=== PATIENT | female | born 1940 | race Caucasian/White ===

== ENCOUNTER 2020-10-11 15:07 | Inpatient (IN) | payer MEDICARE, MEDICAID ==
[~2020-10-11] VITALS: Ht 165.1 cm; Wt 88.6 kg
[~2020-10-11 15:07] MED LIST: AMIO200T61 PO; ATOR10TA87 PO; COL100C PO; GLIM4TAB7 PO; LOP25T PO; NORCO10T PO; SITA100T15 PO; WARF10TA50 CORPAK
[2020-10-11 16:02] LABS: BASOPHILS % (AUTO) 0.7 % (0-1); EOSINOPHILS # (AUTO) 0.2 X10'3 (0-0.9); EOSINOPHILS % (AUTO) 3.1 % (0-6); HEMATOCRIT 36.5 % (35.0-45.0); HEMOGLOBIN 12.3 g/dl (12.0-16.0); LYMPHOCYTES # (AUTO) 1.4 X10'3 (1.1-4.8); LYMPHOCYTES % (AUTO) 18.4 % (21-51); MEAN CORPUSCULAR HEMOGLOBIN 30.3 PG (27.0-31.0); MEAN CORPUSCULAR HGB CONC 33.8 g/dL (33.0-36.5); MEAN CORPUSCULAR VOLUME 89.7 FL (78-98); MEAN PLATELET VOLUME 8.5 FL (7.4-10.4); MONOCYTES # (AUTO) 0.6 X10'3 (0-0.9); MONOCYTES % (AUTO) 7.4 % (2-12); NEUTROPHILS # (AUTO) 5.3 X10'3 (1.8-7.7); NEUTROPHILS % (AUTO) 70.4 % (42-75); PLATELET COUNT 304 X10'3 (140-440); RED BLOOD COUNT 4.07 X10'6 (4.20-5.60); RED CELL DISTRIBUTION WIDTH 14.1 % (11.5-14.5); WHITE BLOOD COUNT 7.5 X10'3 (4.5-11.0)
[2020-10-11 16:18] LABS: ALANINE AMINOTRANSFERASE 50 U/L (12-78); ALBUMIN 3.7 G/DL (3.4-5.0); ALBUMIN/GLOBULIN RATIO 1.1 (1.1-1.5); ALKALINE PHOSPHATASE 215 IU/L (46-116); ANION GAP 14 (8-16); ASPARTATE AMINO TRANSFERASE 30 U/L (10-37); BILIRUBIN,TOTAL 0.3 MG/DL (0.1-1.0); BLOOD UREA NITROGEN 11 MG/DL (7-18); BUN/CREATININE RATIO 14.3 (6.6-38.0); CALCIUM 9.2 MG/DL (8.5-10.1); CHLORIDE 105 MMOL/L (99-107); CREATININE 0.77 MG/DL (0.40-0.90); GLUCOSE 249 MG/DL (70-104); POTASSIUM 3.8 MMOL/L (3.5-5.1); SODIUM 144 MMOL/L (135-145); TOTAL CARBON DIOXIDE 24.9 MMOL/L (24-32); TOTAL PROTEIN 7.2 G/DL (6.4-8.2); eGFR 72 ML/MIN
--- NOTE | 2020-10-11 16:26 | NUR ---
ASSISTED PT TO [facility]; NOTABLE INCREASE IN SOB AND HR. SETTLED DOWN UPON RETURN TO [facility]. BELEN NICHOLSON APPRAISED.
--- NOTE | 2020-10-11 16:45 | NUR ---
Pt gave verbal consent to update [id number], Ada Zapien ([phone]) which was done.
--- NOTE | 2020-10-11 16:49 | NUR ---
Pt's daughter Marquita's cell number [phone]. Try Marquita's home number first; poor cell coverage.
[2020-10-11] MEDS ORDERED: nitroGLYCERIN 0.2mg/hour patch TD ONE (16:50)
[2020-10-11] MEDS ORDERED: aspirin 81mg tab.chew PO ONE (16:50)
[2020-10-11] MEDS ORDERED: LISI10TA27 PO (16:57)
[2020-10-11] MEDS ORDERED: LANTUS SQ (16:57)
[2020-10-11] MEDS ORDERED: LINA5TAB4 PO (16:57)
[2020-10-11] MEDS ORDERED: ASPI-611 PO (17:05)
[2020-10-11] MEDS ORDERED: dextrose 50%-water 50ml dispensing syringe IV PRN ×2 (17:50)
[2020-10-11] MEDS ORDERED: acetaminophen 325mg tablet PO PRN ×2 (17:50)
[2020-10-11] MEDS ORDERED: morphine 2 MG/ML inj. syringe IV PRN ×2 (17:50)
[2020-10-11] MEDS ORDERED: dextrose ORAL solution 15 GM/59 ML bottle PO PRN ×2 (17:50)
[2020-10-11] MEDS ORDERED: MESSAGE TO PHARMACY PO ONE (17:50)
[2020-10-11] MEDS ORDERED: nitroGLYCERIN 0.4mg SUBLingual tab SL PRN (17:50)
[2020-10-11] MEDS ORDERED: glucagon, human recombinant 1mg kit SUBCUT PRN (17:50)
[2020-10-11] MEDS ORDERED: magnesium hydroxide 30ml (MOM) UD suspension PO PRN (17:50)
[2020-10-11] MEDS ORDERED: mag hydrox/Alum hydrox/simeth 30ml oral suspension PO PRN (17:50)
[2020-10-11] MEDS ORDERED: ondansetron/PF 4mg/2ml inj IV PRN (17:50)
[2020-10-11] MEDS ORDERED: heparin 10,000 units/1 ML INJ IV ONE (17:50)
[2020-10-11] MEDS ORDERED: diltiazem 5mg/ml 5ml inj. IV ONE (18:00)
[2020-10-11] MEDS: heparin 25,000 UNIT/250ml bag 250 ML IV SCH (18:25)
[2020-10-11 18:35] LABS: PARTIAL THROMBOPLASTIN TIME 25 SECONDS (22-32)
[2020-10-11 18:47] LABS: BASOPHILS # (AUTO) 0.1 X10'3 (0-0.2); BASOPHILS % (AUTO) 0.8 % (0-1); EOSINOPHILS # (AUTO) 0.2 X10'3 (0-0.9); EOSINOPHILS % (AUTO) 2.8 % (0-6); HEMATOCRIT 36.1 % (35.0-45.0); LYMPHOCYTES # (AUTO) 1.4 X10'3 (1.1-4.8); LYMPHOCYTES % (AUTO) 17.7 % (21-51); MEAN CORPUSCULAR HEMOGLOBIN 30.1 PG (27.0-31.0); MEAN CORPUSCULAR HGB CONC 33.2 g/dL (33.0-36.5); MEAN CORPUSCULAR VOLUME 90.5 FL (78-98); MEAN PLATELET VOLUME 8.2 FL (7.4-10.4); MONOCYTES # (AUTO) 0.6 X10'3 (0-0.9); MONOCYTES % (AUTO) 7.4 % (2-12); NEUTROPHILS # (AUTO) 5.7 X10'3 (1.8-7.7); NEUTROPHILS % (AUTO) 71.3 % (42-75); PLATELET COUNT 309 X10'3 (140-440); RED BLOOD COUNT 3.98 X10'6 (4.20-5.60); RED CELL DISTRIBUTION WIDTH 14.1 % (11.5-14.5)
[2020-10-11 19:03] LABS: HEMOGLOBIN A1C 9.3 % (4.5-6.2)
[2020-10-11 20:29] VITALS: BP 124/95
[2020-10-11] MEDS: insulin glargine (Lantus) pen - multi-dose SQ SCH (21:00)
[2020-10-11] MEDS: atorvastatin 10mg tablet PO SCH (21:10)
[2020-10-11 22:00] VITALS: BP 159/78
[2020-10-11] MEDS: Melatonin 3mg tablet PO PRN (22:51)
--- NOTE | 2020-10-11 23:33 | NUR ---
PATIENT STATES HAS NOT SLEPT IN 48 HOURS AND WISHES TO WAIT FOR THE MORNING TO DO FULL ADMISSION QUESTIONNAIRE
[2020-10-12] VITALS (7 sets, daily range): BP systolic 98–138; BP diastolic 36–100
[2020-10-12 00:47] LABS: HEMOGLOBIN 11.1 g/dl (12.0-16.0); MEAN PLATELET VOLUME 8.5 FL (7.4-10.4)
[2020-10-12 00:49] LABS: BASOPHILS # (AUTO) 0.1 X10'3 (0-0.2); BASOPHILS % (AUTO) 0.8 % (0-1); EOSINOPHILS # (AUTO) 0.2 X10'3 (0-0.9); EOSINOPHILS % (AUTO) 2.7 % (0-6); HEMATOCRIT 32.5 % (35.0-45.0); LYMPHOCYTES # (AUTO) 1.8 X10'3 (1.1-4.8); LYMPHOCYTES % (AUTO) 19.5 % (21-51); MEAN CORPUSCULAR HEMOGLOBIN 30.8 PG (27.0-31.0); MEAN CORPUSCULAR HGB CONC 34.1 g/dL (33.0-36.5); MEAN CORPUSCULAR VOLUME 90.2 FL (78-98); MONOCYTES # (AUTO) 0.7 X10'3 (0-0.9); MONOCYTES % (AUTO) 7.7 % (2-12); NEUTROPHILS # (AUTO) 6.2 X10'3 (1.8-7.7); NEUTROPHILS % (AUTO) 69.3 % (42-75); PLATELET COUNT 280 X10'3 (140-440); RED CELL DISTRIBUTION WIDTH 14.3 % (11.5-14.5)
[2020-10-12 00:56] LABS: ALBUMIN 3.2 G/DL (3.4-5.0); ANION GAP 7 (8-16); BLOOD UREA NITROGEN 13 MG/DL (7-18); BUN/CREATININE RATIO 16.3 (6.6-38.0); CALCIUM 9.1 MG/DL (8.5-10.1); CHLORIDE 108 MMOL/L (99-107); CHOL/HDL RATIO 2.3 (0.00-4.99); CHOLESTEROL 102 MG/DL (0-200); GLUCOSE 223 MG/DL (70-104); HDL CHOLESTEROL 45 MG/DL (35-60); LDL CHOLESTEROL 45 MG/DL (50-100); POTASSIUM 3.4 MMOL/L (3.5-5.1); SODIUM 142 MMOL/L (135-145); TOTAL CARBON DIOXIDE 26.8 MMOL/L (24-32); TRIGLYCERIDES 95 MG/DL (20-135); eGFR 69 ML/MIN
--- NOTE | 2020-10-12 06:39 | NUR ---
Patient in room PCU 3017. I have received report from Tj ZACARIAS and had the opportunity to ask questions and assume patient care.
[2020-10-12] MEDS ORDERED: lisinopril 10 MG tablet PO SCH (08:00)
[2020-10-12] MEDS ORDERED: aspirin 81mg tablet.DR PO SCH (08:00)
[2020-10-12] MEDS: aspirin 81mg tab.chew PO SCH (08:27)
[2020-10-12 12:23] LABS: PARTIAL THROMBOPLASTIN TIME 54 SECONDS (22-32)
[2020-10-12 12:34] LABS: PHOSPHORUS 3.1 MG/DL (2.3-4.5)
[2020-10-12] MEDS: heparin 25,000 UNIT/250ml bag 250 ML IV SCH ×2 (12:38→17:11)
--- NOTE | 2020-10-12 13:10 | NUR ---
Patient resting comfortably in bed, MD would like patient to ambukate some today. Heparin gtt still in place at same rate, 1000 units. Last PTT therapeutic so change in rate for 12pm. Next PTT at 1800, will order per protocol. Bed locked in lowest position, call light within reach, int in place flushing well, patient instructed to call for assistance, verbalized understanding.
[2020-10-12] MEDS: insulin Lispro (HumaLOG) vial - multi-dose SQ SCH ×2 (13:17→18:47)
--- NOTE | 2020-10-12 14:54 | NUR ---
Pt with A1c 9.3% seen at bedside for written and verbal DM education. Pt states she sees an PSYCHOLOGIST COUNSELING q three months and takes her medications per rx. Pt reports limiting intake of dessert items to assist with DM management. Pt denies questions at this time. RD contact information provided. Pt endorses a good appetite however reports disliking the food though with no food preferences at this time. RD assisted pt in menu selection for the following three meals. Noted that milk is listed as a food allergy in EMR, per pt she gets a stuffy notes with intake of dairy and does not avoid it at home, likely not a true allergy. Pt denies difficulty chewing/swallowing or constipation/diarrhea. Will continue to follow. Addendum: 10/12/20 at [address] Amended: Links added.
--- NOTE | 2020-10-12 15:33 | NUR ---
Family at bedside with patient. Heparin GTT still in place. Patient up to bedside commode. No complaints of chest pain, still complains of generalized weakness.
[2020-10-12] MEDS: cetirizine 10mg tablet PO SCH (17:08)
--- NOTE | 2020-10-12 18:18 | NUR ---
Problems reprioritized. Patient report given, questions answered & plan of care reviewed with Tj ZACARIAS.
[2020-10-12 18:28] LABS: PARTIAL THROMBOPLASTIN TIME 44 SECONDS (22-32)
[2020-10-12] MEDS: atorvastatin 10mg tablet PO SCH (18:48)
[2020-10-12] MEDS: furosemide 40mg/4ml inj IV SCH (19:07)
[2020-10-12] MEDS: metoprolol tartrate 12.5mg (1/2 tablet) PO SCH (19:07)
[2020-10-12] MEDS: Melatonin 3mg tablet PO PRN (19:07)
[2020-10-12] MEDS: heparin 10,000 units/1 ML INJ IV PRN (19:13)
[2020-10-12] MEDS: insulin glargine (Lantus) pen - multi-dose SQ SCH (21:34)
--- NOTE | 2020-10-12 22:55 | NUR ---
BLOOD PRESSURE WAS INCORRECTLY PUT IN ON WRONG PATIENT FOR 2200 10/12
[2020-10-13 00:26] LABS: ALBUMIN 3.5 G/DL (3.4-5.0); ANION GAP 8 (8-16); BLOOD UREA NITROGEN 12 MG/DL (7-18); BUN/CREATININE RATIO 15.6 (6.6-38.0); CALCIUM 8.9 MG/DL (8.5-10.1); CHLORIDE 107 MMOL/L (99-107); CREATININE 0.77 MG/DL (0.40-0.90); GLUCOSE 132 MG/DL (70-104); POTASSIUM 3.5 MMOL/L (3.5-5.1); SODIUM 142 MMOL/L (135-145); TOTAL CARBON DIOXIDE 26.8 MMOL/L (24-32); eGFR 72 ML/MIN
[2020-10-13 00:43] LABS: BASOPHILS # (AUTO) 0.1 X10'3 (0-0.2); BASOPHILS % (AUTO) 0.8 % (0-1); EOSINOPHILS # (AUTO) 0.3 X10'3 (0-0.9); EOSINOPHILS % (AUTO) 3.3 % (0-6); HEMATOCRIT 35.3 % (35.0-45.0); LYMPHOCYTES # (AUTO) 1.7 X10'3 (1.1-4.8); LYMPHOCYTES % (AUTO) 19.3 % (21-51); MEAN CORPUSCULAR HEMOGLOBIN 30.5 PG (27.0-31.0); MEAN CORPUSCULAR HGB CONC 34.1 g/dL (33.0-36.5); MEAN CORPUSCULAR VOLUME 89.6 FL (78-98); MEAN PLATELET VOLUME 8.6 FL (7.4-10.4); MONOCYTES # (AUTO) 0.7 X10'3 (0-0.9); MONOCYTES % (AUTO) 7.6 % (2-12); NEUTROPHILS # (AUTO) 6.1 X10'3 (1.8-7.7); PLATELET COUNT 321 X10'3 (140-440); RED BLOOD COUNT 3.94 X10'6 (4.20-5.60); RED CELL DISTRIBUTION WIDTH 14.2 % (11.5-14.5); WHITE BLOOD COUNT 8.8 X10'3 (4.5-11.0)
--- NOTE | 2020-10-13 01:09 | NUR ---
NOTIFIED MD IN REGARDS TO PTT RESULTS. ORDERS ARE TO FOLLOW PROTOCOL . HEPARIN HELD FOR 120 MINS AND DECREASED BY 300 UNITS/ HR THEN REPEAT PTT AT 0500
[2020-10-13 02:00] VITALS: BP 125/50
[2020-10-13 06:00] VITALS: BP 148/67
--- NOTE | 2020-10-13 06:25 | NUR ---
Patient in room PCU 3017. I have received report from Tj ZACARIAS and had the opportunity to ask questions and assume patient care.
[2020-10-13] MEDS: heparin 10,000 units/1 ML INJ IV PRN (06:51)
--- NOTE | 2020-10-13 06:59 | NUR ---
Entered room, patient agitated and states she is ready to go home, Heparin gtt in place, rate changed this morning based on protocol, patient tolerating well. Patient is NPO for possible stress test this morning. Bed locked in lowest position, call light within reach, patient instructed to call for assistance, verbalized understanding.
[2020-10-13] MEDS: furosemide 40mg/4ml inj IV SCH (08:57)
[2020-10-13] MEDS: aspirin 81mg tab.chew PO SCH (08:57)
[2020-10-13] MEDS: cetirizine 10mg tablet PO SCH (08:57)
[2020-10-13] MEDS: insulin Lispro (HumaLOG) vial - multi-dose SQ SCH ×2 (09:00→14:21)
--- NOTE | 2020-10-13 09:58 | NUR ---
Patient resting comfortably in bed, heparin gtt in place, up to bedside commode frequently(taking lasix). No complaints of generalized pain or chest pain at this time. Bed locked in lowest position, call light within reach, fall precautions in place, pt verbalized to call for assistance when needed.
[2020-10-13 11:00] VITALS: BP 117/62
[2020-10-13] MEDS ORDERED: METO25TA6 PO ×2 (11:22→12:18)
[2020-10-13] MEDS ORDERED: APIX5TAB3 PO (11:22)
[2020-10-13] MEDS ORDERED: FURO-150 PO (11:23)
[2020-10-13 12:08] VITALS: BP_SYST 117
[2020-10-13] MEDS: metoprolol tartrate 12.5mg (1/2 tablet) PO SCH (12:08)
--- NOTE | 2020-10-13 15:33 | NUR ---
Discharge instructions provided to patient, med reviewed, patient instructed prescriptions sent to [facility], int removed, patient verbalized understanding. Transported downstairs in wheelchair, instructions provided to son as well.
--- NOTE | 2020-10-14 11:06 | NUR ---
CASE MANAGEMENT DISCHARGE FOLLOW UP: Spoke with pt via telephone. Reports that she is doing okay; denies SOB/dyspnea, CP, fever, dizziness, lethargy, weakness. Verbalizes understanding of s/sx requiring further evaluation/emergent assistance. Verbalizes understanding of new and current medications. Verbalizes compliance with MD discharge instructions. Verbalizes understanding of the importance in making/keeping follow-up appointments, states trying to set up f/u appointments, denies need for assistance, states that her son will be coming to visit and will help. Pt states unsure which home health agency she was open with prior to admit, states will look through papers and call back to this nurse when she finds out. States no further questions/concerns at this time.
== END 2020-10-13 15:47 | disposition home health service (06) | DRG 280 ==
LOC: ER 15:08 → ED HOLD 17:49 → PCU 3S 19:54
PROVIDERS: ADMIT Internal Medicine; ATTEND Internal Medicine
DX: I48.0 Paroxysmal atrial fibrillation (principal); I50.21 Acute systolic (congestive) heart failure; I21.A1 Myocardial infarction type 2; E78.00 Pure hypercholesterolemia, unspecified; E11.9 Type 2 diabetes mellitus without complications; E78.5 Hyperlipidemia, unspecified; I11.0 Hypertensive heart disease with heart failure; I25.10 Atherosclerotic heart disease of native coronary artery without angina pectoris; E87.6 Hypokalemia; Z60.2 Problems related to living alone; Z83.3 Family history of diabetes mellitus; Z85.3 Personal history of malignant neoplasm of breast; I25.2 Old myocardial infarction; Z90.710 Acquired absence of both cervix and uterus; Z95.1 Presence of aortocoronary bypass graft; Z88.0 Allergy status to penicillin; Z88.2 Allergy status to sulfonamides; Z98.51 Tubal ligation status; Z79.899 Other long term (current) drug therapy
CPT/HCPCS: 36415; 71045; 76937; 80048; 80053; 80061; 82948; 83036; 83735; 83880; 84100; 84443; 84484; 85025; 85610; 85730; 87081; 93005; 93306; 93308; 93971; 96374; 99285; G0378; J1644; J1815; J1940; J3490

== ENCOUNTER 2021-10-23 17:36 | Inpatient (IN) | payer MEDICARE, MEDICAID ==
[~2021-10-23] VITALS: Ht 172.7 cm; Wt 90.9 kg
[~2021-10-23 17:36] MED LIST changes: -AMIO200T61 PO; +APIX5TAB3 PO; +ASPI-611 PO; -COL100C PO; -GLIM4TAB7 PO; +KEP500T PO; +LANTUS SQ; +LINA5TAB4 PO; +LISI10TA27 PO; -NORCO10T PO; -SITA100T15 PO; -WARF10TA50 CORPAK; +etomidate 2mg/ml inj. ONE; +sodium bicarbonate (8.4%) 1 mEq/ml syringe ONE
--- NOTE | 2021-10-23 17:37 | NUR ---
BELEN Ponce at bedside.
[2021-10-23] MEDS ORDERED: normal saline 1000ML IV soln IVB ONE (18:05)
[2021-10-23 18:36] LABS: BASOPHILS # (AUTO) 0.1 X10'3 (0-0.2); BASOPHILS % (AUTO) 0.8 % (0-1); EOSINOPHILS # (AUTO) 0.1 X10'3 (0-0.9); HEMATOCRIT 33.4 % (35.0-45.0); HEMOGLOBIN 10.6 g/dl (12.0-16.0); LYMPHOCYTES # (AUTO) 0.7 X10'3 (1.1-4.8); LYMPHOCYTES % (AUTO) 7.5 % (21-51); MEAN CORPUSCULAR HEMOGLOBIN 26.9 PG (27.0-31.0); MEAN CORPUSCULAR HGB CONC 31.6 g/dL (33.0-36.5); MEAN CORPUSCULAR VOLUME 85.1 FL (78-98); MEAN PLATELET VOLUME 9.4 FL (7.4-10.4); MONOCYTES # (AUTO) 0.6 X10'3 (0-0.9); MONOCYTES % (AUTO) 6.3 % (2-12); NEUTROPHILS # (AUTO) 8.4 X10'3 (1.8-7.7); NEUTROPHILS % (AUTO) 84.4 % (42-75); PLATELET COUNT 370 X10'3 (140-440); RED BLOOD COUNT 3.93 X10'6 (4.20-5.60); RED CELL DISTRIBUTION WIDTH 18.1 % (11.5-14.5)
[2021-10-23 18:45] LABS: ALANINE AMINOTRANSFERASE 44 U/L (12-78); ALBUMIN 3.3 G/DL (3.4-5.0); ALBUMIN/GLOBULIN RATIO 0.8 (1.1-1.5); ALKALINE PHOSPHATASE 225 IU/L (46-116); ANION GAP 15 (8-16); ASPARTATE AMINO TRANSFERASE 42 U/L (10-37); BILIRUBIN,TOTAL 0.6 MG/DL (0.1-1.0); BLOOD UREA NITROGEN 28 MG/DL (7-18); BUN/CREATININE RATIO 20.9 (6.6-38.0); CALCIUM 9.4 MG/DL (8.5-10.1); CHLORIDE 98 MMOL/L (99-107); CREATININE 1.34 MG/DL (0.40-0.90); MAGNESIUM 2.1 MG/DL (1.5-2.4); SODIUM 131 MMOL/L (135-145); TOTAL CARBON DIOXIDE 17.9 MMOL/L (24-32); TOTAL PROTEIN 7.4 G/DL (6.4-8.2); eGFR 38 ML/MIN
[2021-10-23 18:52] LABS: GLUCOSE 644 MG/DL (70-104); POTASSIUM 6.2 MMOL/L (3.5-5.1)
[2021-10-23 19:00] LABS: ABG BASE EXCESS -8.5 mmol/L (-2.0-2.0); ABG HCO3 14.8 mmol/L (22.0-26.0); ABG OXYGEN SATURATION 89.9 % (94-97); ABG PCO2 (T) 23.5 mmHg (32.0-45.0); ABG PO2 (T) 56.3 mmHg (75.0-100.0); FCOHb 0.4 % (0.0-3.9); FMetHb 0.2 % (0.0-1.5); FO2Hb 89.4 % (94-97); PATIENT TEMPERATURE 35.9; TOTAL HEMOGLOBIN 11.4 G/dl (12.0-16.0)
[2021-10-23] MEDS ORDERED: dextrose 50%-water 50ml dispensing syringe IV ONE (19:10)
[2021-10-23] MEDS ORDERED: sodium polystyrene sulfonate 15gm/60ml oral suspension PO ONE (19:10)
[2021-10-23] MEDS ORDERED: aspirin 81mg tab.chew PO ONE (19:10)
[2021-10-23] MEDS ORDERED: sodium bicarbonate (8.4%) 1 mEq/ml syringe IV ONE (19:10)
[2021-10-23] MEDS ORDERED: insulin regular, human U-100 3ml vial - multi-dose IV ONE (19:10)
[2021-10-23] MEDS ORDERED: FURO20TA4 PO (19:12)
[2021-10-23] MEDS ORDERED: DONE-46 PO ×2 (19:12→19:15)
[2021-10-23] MEDS ORDERED: INSU100V9 SQ (19:15)
[2021-10-23] MEDS ORDERED: GABA-530 PO (19:15)
[2021-10-23] MEDS ORDERED: diltiazem 5mg/ml 5ml inj. IV ONE ×2 (19:40)
[2021-10-23] MEDS ORDERED: magnesium 2GM in 50ml NS 50 ML IV PRN (20:35)
[2021-10-23] MEDS ORDERED: potassium CL 10mEq/100ml bag 100 ML IV PRN (20:35)
[2021-10-23] MEDS ORDERED: potassium Cl 20 mEq SR tablet PO PRN ×2 (20:35)
[2021-10-23] MEDS ORDERED: magnesium 4gm in 100ml NS 100 ML IV PRN (20:35)
[2021-10-23] MEDS ORDERED: PERFLUTREN PROTEIN-A MICROSPHR (Optison) 0.22 MG/ML 3ML VIAL IV PRN (20:35)
[2021-10-23] MEDS ORDERED: acetaminophen 325mg tablet PO PRN (20:35)
[2021-10-23] MEDS ORDERED: acetaminophen 325mg tablet PO ONE (20:35)
[2021-10-23] MEDS ORDERED: morphine 2 MG/ML inj. syringe IV PRN (20:35)
[2021-10-23] MEDS ORDERED: magnesium Cl slow-release 64mg tablet PO PRN (20:35)
[2021-10-23] MEDS ORDERED: ondansetron/PF 4mg/2ml inj IV PRN (20:35)
[2021-10-23 21:46] LABS: ALANINE AMINOTRANSFERASE 282 U/L (12-78); ALBUMIN 2.7 G/DL (3.4-5.0); ALBUMIN/GLOBULIN RATIO 0.7 (1.1-1.5); ALKALINE PHOSPHATASE 302 IU/L (46-116); ANION GAP 11 (8-16); ASPARTATE AMINO TRANSFERASE 493 U/L (10-37); BILIRUBIN,TOTAL 0.5 MG/DL (0.1-1.0); BLOOD UREA NITROGEN 26 MG/DL (7-18); BUN/CREATININE RATIO 22.8 (6.6-38.0); CALCIUM 8.2 MG/DL (8.5-10.1); CHLORIDE 106 MMOL/L (99-107); CREATININE 1.14 MG/DL (0.40-0.90); GLUCOSE 390 MG/DL (70-104); POTASSIUM 3.8 MMOL/L (3.5-5.1); SODIUM 138 MMOL/L (135-145); TOTAL CARBON DIOXIDE 21.3 MMOL/L (24-32); TOTAL PROTEIN 6.4 G/DL (6.4-8.2); eGFR 46 ML/MIN
--- NOTE | 2021-10-23 21:59 | NUR ---
Katherine, hospitalist, paged regarding critical trop.
[2021-10-23 22:00] VITALS: BP 117/72
[2021-10-23] MEDS ORDERED: enoxaparin 100mg/ml syringe SUBCUT ONE (22:40)
[2021-10-23] MEDS ORDERED: enoxaparin 30mg/0.3ml syringe SUBCUT ONE (22:40)
--- NOTE | 2021-10-23 22:42 | NUR ---
LINES TENDER NOTIFIED ABOUT PT BLOOD GLUCOSE 390 AND TROPONIN 3 HRS 4825. NO NEW ORDER.
[2021-10-23] MEDS ORDERED: enoxaparin 60mg/0.6ml syringe SUBCUT ONE (23:20)
[2021-10-24 02:00] VITALS: BP 136/70
--- NOTE | 2021-10-24 02:17 | NUR ---
PAGER ID: [phone] MESSAGE: Bong GALLEGO I'luis carlos currently at [facility] 3. lab just call and report a troponin 6 hrs for pt Kimberly Santosia [place] room [address] [place] [id number] Gisella ZACARIAS. (135 character message out of a maximum of 240)
--- NOTE | 2021-10-24 02:43 | NUR ---
DR POOLE CALLED BACK FOR CRITICAL TROPONIN LEVEL [id number] AND ORDER LOVENOX 90 ML AT 1000 AM.
--- NOTE | 2021-10-24 05:01 | NUR ---
PAGER ID: [phone] MESSAGE: KULWANT GALLEGO I'm at [facility]. Pt Kimberly Loomis in room 3014 B that was admitted yesterday. Earlier I told you her blood sugar was 390. She was complaining and I check her bs. It is 430 now. Does not have order for insulin. Gisella ZACARIAS (228 character message out of a maximum of 240)
[2021-10-24] MEDS ORDERED: DEXTROSE 15 GM of carb/4 tabs (each vial/BOTTLE has 4 tablets) PO PRN ×2 (05:25)
[2021-10-24] MEDS ORDERED: glucagon, human recombinant 1mg kit SUBCUT PRN (05:25)
[2021-10-24] MEDS ORDERED: MESSAGE TO PHARMACY PO ONE (05:25)
[2021-10-24] MEDS ORDERED: dextrose 50%-water 50ml dispensing syringe IV PRN ×2 (05:25)
[2021-10-24 06:00] VITALS: BP 161/72
[2021-10-24] MEDS ORDERED: insulin Lispro (HumaLOG) vial - multi-dose SQ SCH (07:00)
[2021-10-24 07:15] LABS: BASOPHILS % (AUTO) 0.3 % (0-1); EOSINOPHILS % (AUTO) 0 % (0-6); HEMATOCRIT 33.8 % (35.0-45.0); HEMOGLOBIN 10.7 g/dl (12.0-16.0); LYMPHOCYTES # (AUTO) 0.9 X10'3 (1.1-4.8); MEAN CORPUSCULAR HEMOGLOBIN 26.1 PG (27.0-31.0); MEAN CORPUSCULAR HGB CONC 31.6 g/dL (33.0-36.5); MEAN CORPUSCULAR VOLUME 82.6 FL (78-98); MEAN PLATELET VOLUME 8.8 FL (7.4-10.4); MONOCYTES # (AUTO) 0.8 X10'3 (0-0.9); MONOCYTES % (AUTO) 7.8 % (2-12); NEUTROPHILS # (AUTO) 8.2 X10'3 (1.8-7.7); NEUTROPHILS % (AUTO) 82.9 % (42-75); PLATELET COUNT 347 X10'3 (140-440); RED BLOOD COUNT 4.09 X10'6 (4.20-5.60); RED CELL DISTRIBUTION WIDTH 17.8 % (11.5-14.5); WHITE BLOOD COUNT 9.8 X10'3 (4.5-11.0)
[2021-10-24 07:28] LABS: ALBUMIN 3.1 G/DL (3.4-5.0); ANION GAP 11 (8-16); BLOOD UREA NITROGEN 26 MG/DL (7-18); BUN/CREATININE RATIO 26.3 (6.6-38.0); CHLORIDE 102 MMOL/L (99-107); CHOL/HDL RATIO 2.2 (0.00-4.99); CHOLESTEROL 92 MG/DL (0-200); CREATININE 0.99 MG/DL (0.40-0.90); GLUCOSE 378 MG/DL (70-104); HDL CHOLESTEROL 41 MG/DL (35-60); LDL CHOLESTEROL 44 MG/DL (50-100); POTASSIUM 4.2 MMOL/L (3.5-5.1); SODIUM 137 MMOL/L (135-145); TOTAL CARBON DIOXIDE 24.3 MMOL/L (24-32); TRIGLYCERIDES 52 MG/DL (20-135); eGFR 54 ML/MIN
[2021-10-24] MEDS: insulin Lispro (HumaLOG) vial - multi-dose SQ SCH (07:48)
[2021-10-24] MEDS: K and/or MAG REPLACEMENT MC SCH ×2 (08:00→20:00)
[2021-10-24] MEDS ORDERED: levoFLOXACIN-Levaquin 500mg/D5 100 ML IV SCH (08:00)
[2021-10-24] MEDS ORDERED: enoxaparin 60mg/0.6ml syringe SUBCUT SCH (08:00)
[2021-10-24] MEDS ORDERED: enoxaparin 30mg/0.3ml syringe SUBCUT SCH (08:00)
--- NOTE | 2021-10-24 08:11 | NUR ---
Message: Re: Ebonie Harris. Room: 3014B. Critical 12hr troponin of 81,739. -[facility] #1900 -Dr. Bronson paged concerning critical 12hr trop.
[2021-10-24] MEDS ORDERED: gabapentin 100mg capsule PO SCH (08:48)
[2021-10-24] MEDS ORDERED: POTA10TA37 PO (09:39)
[2021-10-24] MEDS ORDERED: METO-395 PO (09:39)
[2021-10-24] MEDS: enoxaparin 60mg/0.6ml syringe SUBCUT SCH ×2 (10:09→21:36)
[2021-10-24] MEDS: enoxaparin 30mg/0.3ml syringe SUBCUT SCH ×2 (10:10→21:32)
[2021-10-24] MEDS: furosemide 20MG tablet PO SCH (10:19)
[2021-10-24] MEDS: aspirin 81mg, enteric-coated 1 TAB TABLET.DR PO SCH (10:20)
[2021-10-24] MEDS: levetiracetam 250mg tablet PO SCH ×2 (10:20→19:37)
[2021-10-24] MEDS: lisinopril 10 MG tablet PO SCH (10:20)
[2021-10-24] MEDS: metoprolol tartrate 25mg tablet PO SCH ×2 (10:21→19:38)
[2021-10-24] MEDS: donepezil 5mg tablet PO SCH ×2 (10:21→19:37)
[2021-10-24 11:00] VITALS: BP 100/63
[2021-10-24 18:00] VITALS: BP 129/77
[2021-10-24 19:29] VITALS: BP 120/50
[2021-10-24] MEDS: atorvastatin 10mg tablet PO SCH (19:41)
[2021-10-24] MEDS: insulin glargine (Lantus) pen - multi-dose SQ SCH (21:27)
[2021-10-24 22:00] VITALS: BP 133/80
[2021-10-25 02:00] VITALS: BP 128/79
[2021-10-25 06:00] VITALS: BP 140/70
[2021-10-25] MEDS: insulin Lispro (HumaLOG) vial - multi-dose SQ SCH ×3 (07:36→13:47)
[2021-10-25] MEDS: lisinopril 10 MG tablet PO SCH (07:37)
[2021-10-25] MEDS: furosemide 20MG tablet PO SCH (07:38)
[2021-10-25] MEDS: metoprolol tartrate 25mg tablet PO SCH ×2 (07:38→20:02)
[2021-10-25] MEDS: aspirin 81mg, enteric-coated 1 TAB TABLET.DR PO SCH (07:38)
[2021-10-25] MEDS: levetiracetam 250mg tablet PO SCH ×2 (07:41→20:01)
[2021-10-25] MEDS: donepezil 5mg tablet PO SCH ×2 (07:41→21:00)
[2021-10-25] MEDS: levoFLOXACIN-Levaquin 250mg/D5 50 ML IV SCH (07:41)
[2021-10-25] MEDS: K and/or MAG REPLACEMENT MC SCH ×2 (08:00→20:00)
[2021-10-25 08:01] LABS: BASOPHILS % (AUTO) 0.5 % (0-1); EOSINOPHILS % (AUTO) 0.3 % (0-6); HEMATOCRIT 36.7 % (35.0-45.0); HEMOGLOBIN 11.5 g/dl (12.0-16.0); LYMPHOCYTES # (AUTO) 0.7 X10'3 (1.1-4.8); LYMPHOCYTES % (AUTO) 8.7 % (21-51); MEAN CORPUSCULAR HEMOGLOBIN 26.6 PG (27.0-31.0); MEAN CORPUSCULAR HGB CONC 31.2 g/dL (33.0-36.5); MEAN CORPUSCULAR VOLUME 85.1 FL (78-98); MEAN PLATELET VOLUME 8.8 FL (7.4-10.4); MONOCYTES # (AUTO) 0.7 X10'3 (0-0.9); MONOCYTES % (AUTO) 8.4 % (2-12); NEUTROPHILS # (AUTO) 6.9 X10'3 (1.8-7.7); NEUTROPHILS % (AUTO) 82.1 % (42-75); PLATELET COUNT 306 X10'3 (140-440); RED BLOOD COUNT 4.31 X10'6 (4.20-5.60); RED CELL DISTRIBUTION WIDTH 18.3 % (11.5-14.5); WHITE BLOOD COUNT 8.4 X10'3 (4.5-11.0)
[2021-10-25 08:43] LABS: ALBUMIN 3.1 G/DL (3.4-5.0); ANION GAP 15 (8-16); BLOOD UREA NITROGEN 27 MG/DL (7-18); BUN/CREATININE RATIO 25.5 (6.6-38.0); CALCIUM 9.7 MG/DL (8.5-10.1); CHLORIDE 103 MMOL/L (99-107); CREATININE 1.06 MG/DL (0.40-0.90); GLUCOSE 427 MG/DL (70-104); MAGNESIUM 2.1 MG/DL (1.5-2.4); POTASSIUM 4.8 MMOL/L (3.5-5.1); SODIUM 138 MMOL/L (135-145); TOTAL CARBON DIOXIDE 20.5 MMOL/L (24-32); eGFR 50 ML/MIN
[2021-10-25] MEDS: enoxaparin 30mg/0.3ml syringe SUBCUT SCH ×2 (09:22→22:02)
[2021-10-25] MEDS: enoxaparin 60mg/0.6ml syringe SUBCUT SCH ×2 (09:23→22:03)
--- NOTE | 2021-10-25 10:57 | NUR ---
DM consult: Pt with T2DM with A1c 11.0%. Noted pt with BG 644 mg/dL on admit. Per physical assessment pt A/O x 1 and confused. Pt would benefit from DM education once A/O and stable. Will continue to follow. Addendum: 10/25/21 at [address] Amended: Links added.
[2021-10-25 11:00] VITALS: BP 157/79
[2021-10-25 15:00] VITALS: BP 135/63
[2021-10-25 18:00] VITALS: BP 154/70
[2021-10-25] MEDS: atorvastatin 10mg tablet PO SCH (21:00)
[2021-10-25] MEDS: insulin glargine (Lantus) pen - multi-dose SQ SCH (21:00)
[2021-10-25 22:00] VITALS: BP 145/72
[2021-10-26 02:00] VITALS: BP 136/71
[2021-10-26 06:00] VITALS: BP 181/63
[2021-10-26 06:38] LABS: BASOPHILS % (AUTO) 0.6 % (0-1); EOSINOPHILS # (AUTO) 0.2 X10'3 (0-0.9); EOSINOPHILS % (AUTO) 2.8 % (0-6); HEMATOCRIT 34.2 % (35.0-45.0); HEMOGLOBIN 10.6 g/dl (12.0-16.0); LYMPHOCYTES # (AUTO) 1.2 X10'3 (1.1-4.8); LYMPHOCYTES % (AUTO) 14.3 % (21-51); MEAN CORPUSCULAR HEMOGLOBIN 25.9 PG (27.0-31.0); MEAN CORPUSCULAR VOLUME 83.5 FL (78-98); MEAN PLATELET VOLUME 8.6 FL (7.4-10.4); MONOCYTES # (AUTO) 0.9 X10'3 (0-0.9); MONOCYTES % (AUTO) 11.1 % (2-12); NEUTROPHILS % (AUTO) 71.2 % (42-75); PLATELET COUNT 285 X10'3 (140-440); RED CELL DISTRIBUTION WIDTH 18.4 % (11.5-14.5); WHITE BLOOD COUNT 8.4 X10'3 (4.5-11.0)
[2021-10-26] MEDS: levetiracetam 250mg tablet PO SCH ×2 (07:35→20:27)
[2021-10-26] MEDS: levoFLOXACIN-Levaquin 250mg/D5 50 ML IV SCH (07:35)
[2021-10-26] MEDS: metoprolol tartrate 25mg tablet PO SCH ×2 (07:35→20:27)
[2021-10-26] MEDS: lisinopril 10 MG tablet PO SCH (07:36)
[2021-10-26] MEDS: furosemide 20MG tablet PO SCH (07:36)
[2021-10-26] MEDS: aspirin 81mg, enteric-coated 1 TAB TABLET.DR PO SCH (07:36)
[2021-10-26] MEDS: donepezil 5mg tablet PO SCH ×2 (07:36→21:09)
[2021-10-26] MEDS: K and/or MAG REPLACEMENT MC SCH ×2 (08:00→20:00)
[2021-10-26 09:17] LABS: GLUCOSE 157 MG/DL (70-104); TOTAL CARBON DIOXIDE 23.6 MMOL/L (24-32)
[2021-10-26 09:18] LABS: ALBUMIN 2.6 G/DL (3.4-5.0); BLOOD UREA NITROGEN 19 MG/DL (7-18); BUN/CREATININE RATIO 27.9 (6.6-38.0); CALCIUM 9.3 MG/DL (8.5-10.1); CREATININE 0.68 MG/DL (0.40-0.90); MAGNESIUM 1.9 MG/DL (1.5-2.4); eGFR 83 ML/MIN
[2021-10-26 11:00] VITALS: BP 126/83
[2021-10-26] MEDS: enoxaparin 30mg/0.3ml syringe SUBCUT SCH ×2 (13:41→21:23)
[2021-10-26] MEDS: enoxaparin 60mg/0.6ml syringe SUBCUT SCH ×2 (13:41→21:23)
[2021-10-26 14:26] LABS: POTASSIUM 3.9 MMOL/L (3.3-5.1)
[2021-10-26] MEDS: insulin Lispro (HumaLOG) vial - multi-dose SQ SCH (14:47)
[2021-10-26 18:00] VITALS: BP 132/76
[2021-10-26 19:50] VITALS: BP 124/76
[2021-10-26] MEDS: atorvastatin 10mg tablet PO SCH (21:08)
[2021-10-26] MEDS: insulin glargine (Lantus) pen - multi-dose SQ SCH (21:13)
[2021-10-26 22:00] VITALS: BP 126/69
[2021-10-27 02:00] VITALS: BP 124/64
[2021-10-27 06:00] VITALS: BP 124/74
[2021-10-27 07:12] LABS: BASOPHILS # (AUTO) 0.1 X10'3 (0-0.2); BASOPHILS % (AUTO) 0.8 % (0-1); EOSINOPHILS # (AUTO) 0.5 X10'3 (0-0.9); EOSINOPHILS % (AUTO) 6.6 % (0-6); HEMATOCRIT 31.9 % (35.0-45.0); LYMPHOCYTES # (AUTO) 1.3 X10'3 (1.1-4.8); LYMPHOCYTES % (AUTO) 18.2 % (21-51); MEAN CORPUSCULAR HEMOGLOBIN 26.1 PG (27.0-31.0); MEAN CORPUSCULAR HGB CONC 31.3 g/dL (33.0-36.5); MEAN CORPUSCULAR VOLUME 83.2 FL (78-98); MEAN PLATELET VOLUME 8.7 FL (7.4-10.4); MONOCYTES # (AUTO) 0.9 X10'3 (0-0.9); MONOCYTES % (AUTO) 11.6 % (2-12); NEUTROPHILS # (AUTO) 4.6 X10'3 (1.8-7.7); NEUTROPHILS % (AUTO) 62.8 % (42-75); PLATELET COUNT 301 X10'3 (140-440); RED BLOOD COUNT 3.84 X10'6 (4.20-5.60); RED CELL DISTRIBUTION WIDTH 18.1 % (11.5-14.5); WHITE BLOOD COUNT 7.4 X10'3 (4.5-11.0)
[2021-10-27 07:19] LABS: ALBUMIN 2.4 G/DL (3.4-5.0); ANION GAP 7 (8-16); BLOOD UREA NITROGEN 15 MG/DL (7-18); BUN/CREATININE RATIO 23.1 (6.6-38.0); CALCIUM 8.6 MG/DL (8.5-10.1); CHLORIDE 109 MMOL/L (99-107); CREATININE 0.65 MG/DL (0.40-0.90); GLUCOSE 192 MG/DL (70-104); MAGNESIUM 1.8 MG/DL (1.5-2.4); POTASSIUM 3.5 MMOL/L (3.5-5.1); SODIUM 144 MMOL/L (135-145); TOTAL CARBON DIOXIDE 28.2 MMOL/L (24-32); eGFR 87 ML/MIN
[2021-10-27] MEDS: K and/or MAG REPLACEMENT MC SCH (08:00)
[2021-10-27] MEDS: levetiracetam 250mg tablet PO SCH (08:21)
[2021-10-27] MEDS: donepezil 5mg tablet PO SCH (08:22)
[2021-10-27] MEDS: levoFLOXACIN-Levaquin 250mg/D5 50 ML IV SCH (08:22)
[2021-10-27] MEDS: furosemide 20MG tablet PO SCH (08:35)
[2021-10-27] MEDS: metoprolol tartrate 25mg tablet PO SCH (08:35)
[2021-10-27] MEDS: lisinopril 10 MG tablet PO SCH (08:36)
[2021-10-27] MEDS: aspirin 81mg, enteric-coated 1 TAB TABLET.DR PO SCH (08:36)
[2021-10-27] MEDS: insulin Lispro (HumaLOG) vial - multi-dose SQ SCH ×2 (10:01→14:02)
[2021-10-27] MEDS: enoxaparin 60mg/0.6ml syringe SUBCUT SCH (10:04)
[2021-10-27] MEDS: enoxaparin 30mg/0.3ml syringe SUBCUT SCH (10:04)
--- NOTE | 2021-10-27 10:15 | NUR ---
F/u 10/27: Pt DX dementia continues w/ ALOC AOx1/confused per EMR; not appropriate for DM ed. Written DM ed w/ RD contact information placed in pt chart. Addendum: 10/27/21 at [address] Amended: Links added.
[2021-10-27 11:44] VITALS: BP 134/49
--- NOTE | 2021-10-27 15:00 | NUR ---
Discharge note Pt and sister received discharge instructions with no further questions. Per Dr. Mojica pt stable for discharge. IV removed with cath intact. Pt left in private vehicle. [facility]
[2021-10-28] MEDS ORDERED: levoFLOXACIN 500mg tablet PO SCH (11:00)
== END 2021-10-27 15:00 | disposition home or self-care (01) | DRG 280 ==
LOC: ER 17:37 → ED HOLD 20:41 → PCU 3S 22:20
PROVIDERS: ADMIT Internal Medicine; ATTEND Family Medicine
PROC: 5A2204Z Restoration of Cardiac Rhythm, Single (ICD-10-PCS; principal; 2021-10-23)
DX: I48.20 Chronic atrial fibrillation, unspecified (principal); I21.A1 Myocardial infarction type 2; N17.0 Acute kidney failure with tubular necrosis; I50.33 Acute on chronic diastolic (congestive) heart failure; E87.5 Hyperkalemia; E11.65 Type 2 diabetes mellitus with hyperglycemia; E78.5 Hyperlipidemia, unspecified; I44.7 Left bundle-branch block, unspecified; F03.90 Unspecified dementia, unspecified severity, without behavioral disturbance, psychotic disturbance, mood disturbance, and anxiety; E78.00 Pure hypercholesterolemia, unspecified; I95.9 Hypotension, unspecified; I08.0 Rheumatic disorders of both mitral and aortic valves; I25.10 Atherosclerotic heart disease of native coronary artery without angina pectoris; R00.0 Tachycardia, unspecified; Z20.822 Contact with and (suspected) exposure to COVID-19; I10 Essential (primary) hypertension; Z79.899 Other long term (current) drug therapy; Z85.3 Personal history of malignant neoplasm of breast; Z86.73 Personal history of transient ischemic attack (TIA), and cerebral infarction without residual deficits; Z79.01 Long term (current) use of anticoagulants; Z90.710 Acquired absence of both cervix and uterus; Z90.49 Acquired absence of other specified parts of digestive tract; Z90.11 Acquired absence of right breast and nipple; Z95.1 Presence of aortocoronary bypass graft; I25.2 Old myocardial infarction; Z88.0 Allergy status to penicillin; Z88.2 Allergy status to sulfonamides; Z79.82 Long term (current) use of aspirin; Z98.51 Tubal ligation status; Z91.011 Allergy to milk products; Z79.4 Long term (current) use of insulin; Z95.5 Presence of coronary angioplasty implant and graft
CPT/HCPCS: 36415; 36600; 71045; 80048; 80053; 80061; 82803; 82948; 83036; 83735; 83880; 84484; 85018; 85025; 85610; 87081; 87635; 93005; 93306; 94799; 97110; 97116; 97162; 99291; C9803; G0378; J1650; J1815; J1956; J3490; J7030

== ENCOUNTER 2022-02-25 00:10 | Inpatient (IN) | payer MEDICARE, MEDICAID ==
[~2022-02-25] VITALS: Ht 165.1 cm; Wt 91.2 kg
[~2022-02-25 00:10] MED LIST changes: -ASPI-611 PO; -ATOR10TA87 PO; +ATOR20TA66 PO; +CLOP75TA34 PO; +DONE-46 PO; +FLUC100T64 PO; +FURO20TA4 PO; +INSU100V9 SQ; -KEP500T PO; -LANTUS SQ; +LEVE500T PO; -LOP25T PO; +METO-395 PO; +POTA10TA37 PO; -etomidate 2mg/ml inj. ONE; -sodium bicarbonate (8.4%) 1 mEq/ml syringe ONE
[2022-02-25] MEDS ORDERED: diltiazem 5mg/ml 5ml inj. IV ONE ×2 (01:05→20:50)
[2022-02-25 01:35] LABS: BASOPHILS # (AUTO) 0.1 X10'3 (0-0.2); BASOPHILS % (AUTO) 0.3 % (0-1); EOSINOPHILS % (AUTO) 0.1 % (0-6); HEMATOCRIT 38.7 % (35.0-45.0); HEMOGLOBIN 12.8 g/dl (12.0-16.0); LYMPHOCYTES # (AUTO) 0.7 X10'3 (1.1-4.8); LYMPHOCYTES % (AUTO) 4.4 % (21-51); MEAN CORPUSCULAR HEMOGLOBIN 28.9 PG (27.0-31.0); MEAN CORPUSCULAR VOLUME 87.4 FL (78-98); MEAN PLATELET VOLUME 8.2 FL (7.4-10.4); MONOCYTES # (AUTO) 0.7 X10'3 (0-0.9); NEUTROPHILS # (AUTO) 13.6 X10'3 (1.8-7.7); NEUTROPHILS % (AUTO) 90.2 % (42-75); PLATELET COUNT 297 X10'3 (140-440); RED BLOOD COUNT 4.43 X10'6 (4.20-5.60); RED CELL DISTRIBUTION WIDTH 16.9 % (11.5-14.5); WHITE BLOOD COUNT 15.1 X10'3 (4.5-11.0)
[2022-02-25 01:47] LABS: ALANINE AMINOTRANSFERASE 34 U/L (12-78); ALBUMIN 3.1 G/DL (3.4-5.0); ALBUMIN/GLOBULIN RATIO 0.7 (1.1-1.5); ALKALINE PHOSPHATASE 169 IU/L (46-116); ANION GAP 11 (8-16); ASPARTATE AMINO TRANSFERASE 34 U/L (10-37); BILIRUBIN,TOTAL 0.4 MG/DL (0.1-1.0); BLOOD UREA NITROGEN 26 MG/DL (7-18); BUN/CREATININE RATIO 29.2 (6.6-38.0); CALCIUM 9.1 MG/DL (8.5-10.1); CHLORIDE 103 MMOL/L (99-107); CREATININE 0.89 MG/DL (0.40-0.90); GLUCOSE 251 MG/DL (70-104); SODIUM 137 MMOL/L (135-145); TOTAL CARBON DIOXIDE 23.3 MMOL/L (24-32); TOTAL PROTEIN 7.3 G/DL (6.4-8.2); eGFR 61 ML/MIN
[2022-02-25 01:51] LABS: POTASSIUM 4.4 MMOL/L (3.5-5.1)
[2022-02-25] MEDS ORDERED: aspirin 81mg tab.chew PO ONE (02:40)
[2022-02-25] MEDS ORDERED: nitroGLYCERIN 0.4mg/hour patch TD ONE (02:40)
[2022-02-25 02:56] LABS: CLARITY,URINE CLEAR (Clear); COLOR,URINE YELLOW (Yellow); GLUCOSE, URINE NEGATIVE (Neg); KETONES,URINE NEGATIVE (Neg); LEUKOCYTE ESTERASE ,URINE NEGATIVE (Neg); NITRITES, URINE NEGATIVE (Neg); OCCULT BLOOD,URINE NEGATIVE (Neg); PH,URINE 5.5 (4.8-8.0); PROTEIN,URINE NEGATIVE (Neg); UROBILINOGEN,URINE 0.2 E.U/dL (0.2-1.0)
[2022-02-25 03:07] LABS: UA COLLECTION TYPE STRAIGHT CATH
[2022-02-25] MEDS ORDERED: ondansetron 4mg rapidly disintigrating tab PO PRN (03:15)
[2022-02-25] MEDS ORDERED: magnesium hydroxide 30ml (MOM) UD suspension PO PRN (03:15)
[2022-02-25] MEDS ORDERED: morphine 2 MG/ML inj. syringe IV PRN (03:15)
[2022-02-25] MEDS ORDERED: diphenhydrAMINE 50 mg/ml inj IV PRN (03:15)
[2022-02-25] MEDS ORDERED: acetaminophen 650mg rectal suppository RC PRN (03:15)
[2022-02-25] MEDS ORDERED: diphenhydrAMINE 25mg capsule PO PRN (03:15)
[2022-02-25] MEDS ORDERED: mag hydrox/Alum hydrox/simeth 30ml oral suspension PO PRN (03:15)
[2022-02-25] MEDS ORDERED: bisacodyl 10mg suppository rectal RC PRN (03:15)
[2022-02-25] MEDS ORDERED: acetaminophen 325mg tablet PO PRN ×2 (03:15)
[2022-02-25] MEDS ORDERED: ondansetron/PF 4mg/2ml inj IV PRN (03:15)
[2022-02-25] MEDS: levoFLOXACIN-Levaquin 750MG/D5 150 ML IV SCH (03:58)
[2022-02-25] MEDS: normal saline 1000ml 1,000 ML IV SCH (03:58)
[2022-02-25] MEDS: morphine 2 MG/ML inj. syringe IV PRN ×2 (04:01→16:19)
[2022-02-25 04:12] LABS: APTT 21 SECONDS (22-32); D-DIMER 2.51 MG/L FEU (0-0.50)
[2022-02-25 04:25] LABS: MAGNESIUM 2.1 MG/DL (1.5-2.4); PHOSPHORUS 3.4 MG/DL (2.3-4.5)
[2022-02-25] MEDS ORDERED: ringers solution, lactated 500ml IV solution IV ONE (05:00)
--- NOTE | 2022-02-25 06:46 | NUR ---
spoke to dr jara regarding patient elevated trop and there is no orders for heparin or eliquis as per md pt will be on asprin no need for heparin or eliquis. also informed the md that pt bp is 106/46 after 400 cc bolus as per md if pressure start to go down MAP below 65 and urine output less then 100 ml in 2-3 hr then start the pt on dopamine drip at 5 mcg to maintain the bp MAP above 65.
[2022-02-25] MEDS: aspirin 81mg, enteric-coated 1 TAB TABLET.DR PO SCH (08:00)
[2022-02-25] MEDS: docusate sod 100mg capsule PO SCH ×2 (08:00→19:27)
--- NOTE | 2022-02-25 08:12 | NUR ---
PAGED DR WISEMAN AND SPOKE TO HIM REGARDING ORDER FOR ASPRIN AND ELIQUIS , PER MD GIVE ELIQUIS AND CANCEL THE ASPRIN .ALSO INFORMED THE MD THAT PT PREVIOUS BP WAS LOW LESS THEN 100 mmHg SYSTOLIC .BUT CURRENT BP IS 115/71 PER OKAY TO ADMIN LASIX 20 MG IV.
[2022-02-25] MEDS: furosemide 10 MG/1 ML 10ml inj IV SCH (08:21)
[2022-02-25] MEDS: pantoprazole 40mg Tablet.DR PO SCH (08:21)
[2022-02-25] MEDS: apixaban 5mg tablet PO SCH ×2 (08:21→19:26)
[2022-02-25] MEDS ORDERED: FURO-150 PO (13:50)
[2022-02-25] MEDS ORDERED: CLOP75TA33 PO (13:51)
[2022-02-25 16:00] VITALS: BP 136/76
[2022-02-25] MEDS ORDERED: MESSAGE TO PHARMACY PO ONE (17:55)
[2022-02-25] MEDS ORDERED: DEXTROSE 15 GM of carb/4 tabs (each vial/BOTTLE has 4 tablets) PO PRN ×2 (17:55)
[2022-02-25] MEDS ORDERED: dextrose 50%-water 50ml dispensing syringe IV PRN ×2 (17:55)
[2022-02-25] MEDS ORDERED: glucagon, human recombinant 1mg kit SUBCUT PRN (17:55)
[2022-02-25 18:00] VITALS: BP 115/72
[2022-02-25 18:45] LABS: HEMOGLOBIN A1C 8.6 % (4.5-6.2)
--- NOTE | 2022-02-25 19:07 | NUR ---
Bryanna Alvarado for elevated Troponin of 1429. Patient denies chest pain. Patient C/O pain to right Addendum: 02/25/22 at 1915 by Anita Bone RN Error- patient complains of pain to lower extremities due to chronic erosive dermatitis and general arthritis pain. Otherwise, no chest pain. No new orders received.
[2022-02-25] MEDS: HYDROcodone/acetaminophen 5mg/325mg tablet PO PRN (19:26)
[2022-02-25] MEDS: metoprolol succinate 25mg (24-HOUR) SR. Tablet PO SCH (19:26)
--- NOTE | 2022-02-25 20:40 | NUR ---
Called Dr. Alvarado for tachycardia as high as 142 bpm. BP 129/60, RR 22, O2 94 on 2L N/C. Order received for Cardizem 10mg IV x1. May repeat after one hour if HR is still above 130 bpm. If after two boluses of Cardizem 10mg patient is still tachycardic, put patient on Cardizem drip.
[2022-02-25] MEDS ORDERED: temazepam 15mg capsule PO PRN (21:00)
[2022-02-25] MEDS: insulin glargine (Lantus) pen - multi-dose SQ SCH (21:00)
[2022-02-25] MEDS: donepezil 5mg tablet PO SCH (21:31)
[2022-02-25 22:00] VITALS: BP 127/66
--- NOTE | 2022-02-26 01:37 | NUR ---
Morphine 2 mg given at 0. Patient and medication scanned but noticed it did not register in [employer]. There is not a way to enter a late entry for PRN medications in OCT. Pharmacy notified.
[2022-02-26 02:00] VITALS: BP 131/53
--- NOTE | 2022-02-26 06:28 | NUR ---
Problems reprioritized. Patient report given, questions answered & plan of care reviewed with Jaleesa.
[2022-02-26 07:00] VITALS: BP 117/66
[2022-02-26 07:44] LABS: BASOPHILS % (AUTO) 0.5 % (0-1); EOSINOPHILS # (AUTO) 0.1 X10'3 (0-0.9); EOSINOPHILS % (AUTO) 1.3 % (0-6); HEMATOCRIT 36.9 % (35.0-45.0); HEMOGLOBIN 12.3 g/dl (12.0-16.0); LYMPHOCYTES # (AUTO) 0.8 X10'3 (1.1-4.8); LYMPHOCYTES % (AUTO) 8.4 % (21-51); MEAN CORPUSCULAR HEMOGLOBIN 29.3 PG (27.0-31.0); MEAN CORPUSCULAR HGB CONC 33.5 g/dL (33.0-36.5); MEAN CORPUSCULAR VOLUME 87.7 FL (78-98); MEAN PLATELET VOLUME 8.3 FL (7.4-10.4); MONOCYTES # (AUTO) 0.9 X10'3 (0-0.9); MONOCYTES % (AUTO) 9.4 % (2-12); NEUTROPHILS # (AUTO) 7.9 X10'3 (1.8-7.7); NEUTROPHILS % (AUTO) 80.4 % (42-75); PLATELET COUNT 248 X10'3 (140-440); WHITE BLOOD COUNT 9.8 X10'3 (4.5-11.0)
[2022-02-26] MEDS ORDERED: PERFLUTREN PROTEIN-A MICROSPHR (Optison) 0.22 MG/ML 3ML VIAL IV ONE (07:50)
[2022-02-26 08:39] LABS: GLUCOSE 253 MG/DL (70-104); POTASSIUM 4.9 MMOL/L (3.5-5.1); SODIUM 139 MMOL/L (135-145)
[2022-02-26 08:40] LABS: ALANINE AMINOTRANSFERASE 27 U/L (12-78); ALBUMIN 2.9 G/DL (3.4-5.0); ALBUMIN/GLOBULIN RATIO 0.7 (1.1-1.5); ANION GAP 6 (8-16); ASPARTATE AMINO TRANSFERASE 28 U/L (10-37); BILIRUBIN,TOTAL 0.6 MG/DL (0.1-1.0); BLOOD UREA NITROGEN 17 MG/DL (7-18); BUN/CREATININE RATIO 19.8 (6.6-38.0); CALCIUM 9.3 MG/DL (8.5-10.1); CHLORIDE 106 MMOL/L (99-107); CHOL/HDL RATIO 3.1 (0.00-4.99); CHOLESTEROL 153 MG/DL (0-200); CREATININE 0.86 MG/DL (0.40-0.90); HDL CHOLESTEROL 49 MG/DL (35-60); LDL CHOLESTEROL 86 MG/DL (50-100); TOTAL CARBON DIOXIDE 26.9 MMOL/L (24-32); TOTAL PROTEIN 6.9 G/DL (6.4-8.2); TRIGLYCERIDES 54 MG/DL (20-135); eGFR 63 ML/MIN
[2022-02-26] MEDS: insulin Lispro (HumaLOG) vial - multi-dose SQ SCH ×3 (09:22→19:24)
[2022-02-26] MEDS: furosemide 10 MG/1 ML 10ml inj IV SCH (09:23)
[2022-02-26] MEDS: lisinopril 10 MG tablet PO SCH (09:23)
[2022-02-26] MEDS: potassium chloride 10mEq ER tablet PO SCH (09:23)
[2022-02-26] MEDS: metoprolol succinate 25mg (24-HOUR) SR. Tablet PO SCH ×2 (09:23→19:17)
[2022-02-26] MEDS: clopidogrel 75mg tablet PO SCH (09:23)
[2022-02-26] MEDS: pantoprazole 40mg Tablet.DR PO SCH (09:24)
[2022-02-26] MEDS: apixaban 5mg tablet PO SCH ×2 (09:24→19:13)
[2022-02-26] MEDS: docusate sod 100mg capsule PO SCH ×2 (09:24→19:13)
[2022-02-26] MEDS: aspirin 81mg, enteric-coated 1 TAB TABLET.DR PO SCH (09:24)
[2022-02-26] MEDS: diltiazem CD 180mg cap (once-daily) PO SCH (09:28)
[2022-02-26 09:37] LABS: ALKALINE PHOSPHATASE 129 IU/L (46-116)
[2022-02-26 11:00] VITALS: BP 130/58
--- NOTE | 2022-02-26 11:53 | NUR ---
Diabetes consult: Pt w/ hx of DM A1c 8.6 and takes tradjenta at home per EMR. Noted pt to be A&O x3 and confused. Written DM ed w/ RD contact info placed in pt chart. Addendum: 02/26/22 at [address] Amended: Links added.
--- NOTE | 2022-02-26 12:25 | NUR ---
Page Sent promotional table spacer PAGER ID: [phone] MESSAGE: [phone] Kimberly. the two hour trop you asked me to order earlier has resulted. Trop Raymundo. [email or web address]
[2022-02-26 15:00] VITALS: BP 103/51
--- NOTE | 2022-02-26 15:39 | NUR ---
PRESSURE ULCER EDUCATION: DEFINITION: A pressure ulcer is an area of skin that breaks down when you stay in one position too long. The constant pressure against the skin reduces the blood flow to that area and the affected tissue dies. CAUSES: "Being bedridden or in a wheelchair "Fragile skin "Having a chronic condition, such as diabetes or vascular disease "Inability to move certain parts of your body without assistance "Older age "Incontinence of urine or stool SYMPTOMS: "A reddened area that DOES NOT turn white when pressed on - this can be the beginning of a pressure ulcer "A blister, deep sore or a crater - these can be advanced pressure ulcers FIRST AID: "Relieve the pressure on this area "Keep the area clean and dry "Call your primary doctor if you see any of the above symptoms "DO NOT massage the area "DO NOT use a donut shaped or ring shaped pillow- these actually interfere with the blood flow and cause complications PREVENTION: "Check for pressure ulcers everyday "Change position at least every two hours to relieve pressure "Use items that help relieve pressure- pillows, sheepskin, foam padding, and powders. "Keep skin clean and dry "Eat healthy well balanced meals "Exercise daily IF YOU SEE ANY OF THESE SYMPTOMS WHILE IN THE HOSPITAL - TELL YOUR NURSE IMMEDIATELY. IF YOU SEE ANY OF THESE SYMPTOMS WHILE AT HOME OR HAVE ANY QUESTIONS OR CONCERNS ABOUT PRESSURE ULCERS - CALL YOUR PRIMARY DOCTOR IMMEDIATELY. Addendum: 02/26/22 at 1540 by Lilo Barrera LVN Amended: Links added.
[2022-02-26] MEDS: morphine 2 MG/ML inj. syringe IV PRN (16:20)
[2022-02-26 18:00] VITALS: BP 116/50
--- NOTE | 2022-02-26 18:26 | NUR ---
Problems reprioritized. Patient report given, questions answered & plan of care reviewed with KARISSA ZACARIAS.
--- NOTE | 2022-02-26 18:52 | NUR ---
Patient in room PCU 3017. I have received report from RELL Lazcano and had the opportunity to ask questions and assume patient care.
[2022-02-26] MEDS: HYDROcodone/acetaminophen 5mg/325mg tablet PO PRN (19:25)
[2022-02-26] MEDS: triamcinolone acet 0.1% cream 15gm TP SCH (20:00)
[2022-02-26] MEDS: donepezil 5mg tablet PO SCH (21:36)
[2022-02-26] MEDS: insulin glargine (Lantus) pen - multi-dose SQ SCH (21:42)
[2022-02-26 22:00] VITALS: BP 100/44
[2022-02-27] MEDS: normal saline 1000ml 1,000 ML IV SCH (03:47)
[2022-02-27] MEDS: HYDROcodone/acetaminophen 5mg/325mg tablet PO PRN ×2 (03:53→20:31)
[2022-02-27 06:00] VITALS: BP 108/40
--- NOTE | 2022-02-27 06:32 | NUR ---
Problems reprioritized. Patient report given, questions answered & plan of care reviewed with RELL France.
[2022-02-27] MEDS: potassium chloride 10mEq ER tablet PO SCH (07:16)
[2022-02-27] MEDS: docusate sod 100mg capsule PO SCH ×2 (07:16→20:30)
[2022-02-27] MEDS: diltiazem CD 180mg cap (once-daily) PO SCH (07:16)
[2022-02-27] MEDS: apixaban 5mg tablet PO SCH ×2 (07:16→20:30)
[2022-02-27] MEDS: clopidogrel 75mg tablet PO SCH (07:16)
[2022-02-27] MEDS: aspirin 81mg, enteric-coated 1 TAB TABLET.DR PO SCH (07:16)
[2022-02-27] MEDS: levoFLOXACIN-Levaquin 750MG/D5 150 ML IV SCH (07:16)
[2022-02-27] MEDS: pantoprazole 40mg Tablet.DR PO SCH (07:17)
[2022-02-27] MEDS: metoprolol succinate 25mg (24-HOUR) SR. Tablet PO SCH ×2 (07:18→20:32)
[2022-02-27] MEDS: furosemide 10 MG/1 ML 10ml inj IV SCH ×2 (07:18→20:35)
[2022-02-27] MEDS: lisinopril 10 MG tablet PO SCH (07:18)
[2022-02-27 08:02] LABS: BASOPHILS # (AUTO) 0.1 X10'3 (0-0.2); BASOPHILS % (AUTO) 0.6 % (0-1); EOSINOPHILS # (AUTO) 0.4 X10'3 (0-0.9); EOSINOPHILS % (AUTO) 4.4 % (0-6); HEMATOCRIT 32.4 % (35.0-45.0); HEMOGLOBIN 10.8 g/dl (12.0-16.0); LYMPHOCYTES # (AUTO) 1.3 X10'3 (1.1-4.8); LYMPHOCYTES % (AUTO) 15.6 % (21-51); MEAN CORPUSCULAR HGB CONC 33.4 g/dL (33.0-36.5); MEAN CORPUSCULAR VOLUME 87.1 FL (78-98); MEAN PLATELET VOLUME 8.7 FL (7.4-10.4); MONOCYTES # (AUTO) 0.8 X10'3 (0-0.9); MONOCYTES % (AUTO) 9.1 % (2-12); NEUTROPHILS % (AUTO) 70.3 % (42-75); PLATELET COUNT 238 X10'3 (140-440); RED BLOOD COUNT 3.72 X10'6 (4.20-5.60); RED CELL DISTRIBUTION WIDTH 17.2 % (11.5-14.5); WHITE BLOOD COUNT 8.5 X10'3 (4.5-11.0)
[2022-02-27 08:30] LABS: ALANINE AMINOTRANSFERASE 26 U/L (12-78); ALBUMIN 2.6 G/DL (3.4-5.0); ALBUMIN/GLOBULIN RATIO 0.7 (1.1-1.5); ALKALINE PHOSPHATASE 108 IU/L (46-116); ANION GAP 9 (8-16); ASPARTATE AMINO TRANSFERASE 24 U/L (10-37); BILIRUBIN,TOTAL 0.6 MG/DL (0.1-1.0); BLOOD UREA NITROGEN 27 MG/DL (7-18); BUN/CREATININE RATIO 30.7 (6.6-38.0); CALCIUM 9.3 MG/DL (8.5-10.1); CHLORIDE 107 MMOL/L (99-107); CREATININE 0.88 MG/DL (0.40-0.90); GLUCOSE 138 MG/DL (70-104); POTASSIUM 3.7 MMOL/L (3.5-5.1); SODIUM 140 MMOL/L (135-145); TOTAL CARBON DIOXIDE 23.9 MMOL/L (24-32); TOTAL PROTEIN 6.3 G/DL (6.4-8.2); eGFR 61 ML/MIN
[2022-02-27] MEDS: triamcinolone acet 0.1% cream 15gm TP SCH ×2 (08:33→22:14)
[2022-02-27] MEDS: insulin Lispro (HumaLOG) vial - multi-dose SQ SCH ×3 (09:09→20:26)
[2022-02-27 11:00] VITALS: BP 116/95
[2022-02-27 15:00] VITALS: BP 119/55
[2022-02-27 18:00] VITALS: BP 114/48
--- NOTE | 2022-02-27 18:15 | NUR ---
Patient in room PCU 3015. I have received report from RELL France and had the opportunity to ask questions and assume patient care.
[2022-02-27] MEDS: donepezil 5mg tablet PO SCH (20:33)
[2022-02-27 22:00] VITALS: BP 114/48
[2022-02-27] MEDS: insulin glargine (Lantus) pen - multi-dose SQ SCH (22:16)
[2022-02-28] MEDS: morphine 2 MG/ML inj. syringe IV PRN (00:20)
[2022-02-28 02:00] VITALS: BP 99/41
[2022-02-28 06:00] VITALS: BP 110/46
--- NOTE | 2022-02-28 06:21 | NUR ---
Problems reprioritized. Patient report given, questions answered & plan of care reviewed with RELL Russo.
[2022-02-28 07:27] LABS: BASOPHILS # (AUTO) 0.1 X10'3 (0-0.2); BASOPHILS % (AUTO) 0.7 % (0-1); EOSINOPHILS # (AUTO) 0.4 X10'3 (0-0.9); EOSINOPHILS % (AUTO) 4.7 % (0-6); HEMATOCRIT 32.6 % (35.0-45.0); HEMOGLOBIN 10.9 g/dl (12.0-16.0); LYMPHOCYTES # (AUTO) 1.2 X10'3 (1.1-4.8); LYMPHOCYTES % (AUTO) 15.6 % (21-51); MEAN CORPUSCULAR HEMOGLOBIN 29.5 PG (27.0-31.0); MEAN CORPUSCULAR HGB CONC 33.5 g/dL (33.0-36.5); MEAN CORPUSCULAR VOLUME 88.2 FL (78-98); MEAN PLATELET VOLUME 8.4 FL (7.4-10.4); MONOCYTES # (AUTO) 0.7 X10'3 (0-0.9); MONOCYTES % (AUTO) 9.2 % (2-12); NEUTROPHILS # (AUTO) 5.3 X10'3 (1.8-7.7); NEUTROPHILS % (AUTO) 69.8 % (42-75); PLATELET COUNT 246 X10'3 (140-440); WHITE BLOOD COUNT 7.6 X10'3 (4.5-11.0)
[2022-02-28 07:37] LABS: ALANINE AMINOTRANSFERASE 25 U/L (12-78); ALBUMIN 2.5 G/DL (3.4-5.0); ALBUMIN/GLOBULIN RATIO 0.7 (1.1-1.5); ANION GAP 8 (8-16); ASPARTATE AMINO TRANSFERASE 23 U/L (10-37); BILIRUBIN,TOTAL 0.4 MG/DL (0.1-1.0); BLOOD UREA NITROGEN 27 MG/DL (7-18); BUN/CREATININE RATIO 33.3 (6.6-38.0); CALCIUM 8.7 MG/DL (8.5-10.1); CHLORIDE 106 MMOL/L (99-107); CREATININE 0.81 MG/DL (0.40-0.90); GLUCOSE 137 MG/DL (70-104); POTASSIUM 3.9 MMOL/L (3.5-5.1); SODIUM 140 MMOL/L (135-145); TOTAL CARBON DIOXIDE 25.7 MMOL/L (24-32); TOTAL PROTEIN 6.2 G/DL (6.4-8.2); eGFR 68 ML/MIN
[2022-02-28 07:49] LABS: ALKALINE PHOSPHATASE 107 IU/L (46-116)
[2022-02-28] MEDS: furosemide 10 MG/1 ML 10ml inj IV SCH ×2 (08:14→19:46)
[2022-02-28] MEDS: metoprolol succinate 25mg (24-HOUR) SR. Tablet PO SCH ×2 (08:15→19:43)
[2022-02-28] MEDS: clopidogrel 75mg tablet PO SCH (08:16)
[2022-02-28] MEDS: aspirin 81mg, enteric-coated 1 TAB TABLET.DR PO SCH (08:16)
[2022-02-28] MEDS: apixaban 5mg tablet PO SCH ×2 (08:16→19:42)
[2022-02-28] MEDS: diltiazem CD 180mg cap (once-daily) PO SCH (08:16)
[2022-02-28] MEDS: docusate sod 100mg capsule PO SCH ×2 (08:16→19:45)
[2022-02-28] MEDS: potassium chloride 10mEq ER tablet PO SCH (08:17)
[2022-02-28] MEDS: pantoprazole 40mg Tablet.DR PO SCH (08:17)
[2022-02-28] MEDS: lisinopril 10 MG tablet PO SCH (08:17)
[2022-02-28] MEDS: triamcinolone acet 0.1% cream 15gm TP SCH ×2 (08:18→19:50)
[2022-02-28] MEDS: insulin Lispro (HumaLOG) vial - multi-dose SQ SCH ×3 (09:12→19:41)
[2022-02-28 11:00] VITALS: BP 103/42
[2022-02-28 15:00] VITALS: BP 124/83
--- NOTE | 2022-02-28 15:18 | NUR ---
unable to get daily weight due to bed scale not working, bed changed and new scale also not working. pt unable to stand for bed scale.
[2022-02-28 18:00] VITALS: BP 127/40
[2022-02-28] MEDS: HYDROcodone/acetaminophen 5mg/325mg tablet PO PRN (18:56)
--- NOTE | 2022-02-28 19:03 | NUR ---
Report given to Daniel ZACARIAS, patient eating dinner, no current concerns or distress.
[2022-02-28 22:00] VITALS: BP 111/44
[2022-02-28] MEDS: insulin glargine (Lantus) pen - multi-dose SQ SCH (22:01)
[2022-02-28] MEDS: donepezil 5mg tablet PO SCH (22:03)
[2022-03-01] VITALS (8 sets, daily range): BP systolic 97–130; BP diastolic 37–70
[2022-03-01] MEDS: HYDROcodone/acetaminophen 5mg/325mg tablet PO PRN ×2 (03:27→20:31)
[2022-03-01] MEDS: normal saline 1000ml 1,000 ML IV SCH (03:29)
--- NOTE | 2022-03-01 06:23 | NUR ---
Problems reprioritized. Patient report given, questions answered & plan of care reviewed with RELL Russo.
[2022-03-01 06:57] LABS: BASOPHILS % (AUTO) 0.7 % (0-1); EOSINOPHILS # (AUTO) 0.3 X10'3 (0-0.9); EOSINOPHILS % (AUTO) 4.7 % (0-6); HEMATOCRIT 31.3 % (35.0-45.0); HEMOGLOBIN 10.6 g/dl (12.0-16.0); LYMPHOCYTES # (AUTO) 1.2 X10'3 (1.1-4.8); LYMPHOCYTES % (AUTO) 19.8 % (21-51); MEAN CORPUSCULAR HEMOGLOBIN 29.6 PG (27.0-31.0); MEAN CORPUSCULAR HGB CONC 33.9 g/dL (33.0-36.5); MEAN CORPUSCULAR VOLUME 87.3 FL (78-98); MEAN PLATELET VOLUME 8.3 FL (7.4-10.4); MONOCYTES # (AUTO) 0.6 X10'3 (0-0.9); NEUTROPHILS # (AUTO) 3.8 X10'3 (1.8-7.7); NEUTROPHILS % (AUTO) 64.8 % (42-75); PLATELET COUNT 254 X10'3 (140-440); RED BLOOD COUNT 3.59 X10'6 (4.20-5.60); RED CELL DISTRIBUTION WIDTH 16.7 % (11.5-14.5); WHITE BLOOD COUNT 5.9 X10'3 (4.5-11.0)
[2022-03-01 07:01] LABS: ALANINE AMINOTRANSFERASE 25 U/L (12-78); ALBUMIN 2.5 G/DL (3.4-5.0); ALBUMIN/GLOBULIN RATIO 0.7 (1.1-1.5); ALKALINE PHOSPHATASE 103 IU/L (46-116); ANION GAP 9 (8-16); ASPARTATE AMINO TRANSFERASE 18 U/L (10-37); BILIRUBIN,TOTAL 0.4 MG/DL (0.1-1.0); BLOOD UREA NITROGEN 26 MG/DL (7-18); BUN/CREATININE RATIO 37.1 (6.6-38.0); CHLORIDE 105 MMOL/L (99-107); GLUCOSE 114 MG/DL (70-104); POTASSIUM 3.8 MMOL/L (3.5-5.1); SODIUM 139 MMOL/L (135-145); TOTAL CARBON DIOXIDE 25.5 MMOL/L (24-32); TOTAL PROTEIN 6.3 G/DL (6.4-8.2); eGFR 80 ML/MIN
[2022-03-01] MEDS: lisinopril 10 MG tablet PO SCH (08:00)
[2022-03-01] MEDS: metoprolol succinate 25mg (24-HOUR) SR. Tablet PO SCH ×2 (08:00→11:39)
--- NOTE | 2022-03-01 08:41 | NUR ---
Initial: Pt admitted w/ acute respiratory failure and systolic heart failure per EMR. Currently on Carb control diet w/ avg intake 76% of meals meeting est nutrient needs at this time. Pt noted w/ erosive dermatitis, has partial thickness scabbing to face, shoulders and BLE per WOC assessment. LBM 02/28 receiving routine colace. No nutrition intervention implemented at this time, will continue to monitor. Recs: 1. Continue Carb control diet as tolerated 2. Bowel care per rx 3. Scaled wts Addendum: 03/01/22 at [address] Amended: Links added.
[2022-03-01] MEDS: insulin Lispro (HumaLOG) vial - multi-dose SQ SCH ×3 (09:26→20:32)
[2022-03-01] MEDS: furosemide 10 MG/1 ML 10ml inj IV SCH ×2 (09:34→20:29)
[2022-03-01] MEDS: apixaban 5mg tablet PO SCH ×2 (09:35→20:28)
[2022-03-01] MEDS: diltiazem CD 180mg cap (once-daily) PO SCH (09:35)
[2022-03-01] MEDS: docusate sod 100mg capsule PO SCH ×2 (09:35→20:29)
[2022-03-01] MEDS: clopidogrel 75mg tablet PO SCH (09:35)
[2022-03-01] MEDS: potassium chloride 10mEq ER tablet PO SCH (09:35)
[2022-03-01] MEDS: triamcinolone acet 0.1% cream 15gm TP SCH ×2 (09:35→20:00)
[2022-03-01] MEDS: aspirin 81mg, enteric-coated 1 TAB TABLET.DR PO SCH (09:35)
[2022-03-01] MEDS: pantoprazole 40mg Tablet.DR PO SCH (09:37)
[2022-03-01] MEDS ORDERED: levoFLOXACIN 750MG TABLET PO SCH (11:00)
--- NOTE | 2022-03-01 18:47 | NUR ---
Report given to Ashu ZACARIAS, Pt resting comfortably, no distress, eating dinner.
[2022-03-01] MEDS: donepezil 5mg tablet PO SCH (20:28)
[2022-03-01] MEDS: insulin glargine (Lantus) pen - multi-dose SQ SCH (22:33)
[2022-03-02 02:00] VITALS: BP 123/47
[2022-03-02] MEDS: HYDROcodone/acetaminophen 5mg/325mg tablet PO PRN (03:08)
--- NOTE | 2022-03-02 06:40 | NUR ---
Patient in room PCU 3015. I have received report from Ashu ZACARIAS and had the opportunity to ask questions and assume patient care.
--- NOTE | 2022-03-02 06:40 | NUR ---
Problems reprioritized. Patient report given, questions answered & plan of care reviewed with DANNY. Addendum: 03/02/22 at 0640 by Alexx Bañuelos RN Amended: Links added.
[2022-03-02 07:11] VITALS: BP 74/41
[2022-03-02 07:11] LABS: BASOPHILS % (AUTO) 0.6 % (0-1); EOSINOPHILS # (AUTO) 0.3 X10'3 (0-0.9); EOSINOPHILS % (AUTO) 4.8 % (0-6); HEMATOCRIT 32.1 % (35.0-45.0); LYMPHOCYTES # (AUTO) 1.3 X10'3 (1.1-4.8); LYMPHOCYTES % (AUTO) 21.6 % (21-51); MEAN CORPUSCULAR HEMOGLOBIN 29.6 PG (27.0-31.0); MEAN CORPUSCULAR HGB CONC 34.2 g/dL (33.0-36.5); MEAN CORPUSCULAR VOLUME 86.3 FL (78-98); MEAN PLATELET VOLUME 8.1 FL (7.4-10.4); MONOCYTES # (AUTO) 0.7 X10'3 (0-0.9); MONOCYTES % (AUTO) 11.3 % (2-12); NEUTROPHILS # (AUTO) 3.8 X10'3 (1.8-7.7); NEUTROPHILS % (AUTO) 61.7 % (42-75); PLATELET COUNT 280 X10'3 (140-440); RED BLOOD COUNT 3.72 X10'6 (4.20-5.60); RED CELL DISTRIBUTION WIDTH 16.8 % (11.5-14.5); WHITE BLOOD COUNT 6.1 X10'3 (4.5-11.0)
[2022-03-02 07:29] LABS: ALANINE AMINOTRANSFERASE 23 U/L (12-78); ALBUMIN 2.5 G/DL (3.4-5.0); ALBUMIN/GLOBULIN RATIO 0.6 (1.1-1.5); ALKALINE PHOSPHATASE 98 IU/L (46-116); ANION GAP 9 (8-16); ASPARTATE AMINO TRANSFERASE 22 U/L (10-37); BILIRUBIN,TOTAL 0.3 MG/DL (0.1-1.0); BLOOD UREA NITROGEN 24 MG/DL (7-18); BUN/CREATININE RATIO 29.6 (6.6-38.0); CALCIUM 8.9 MG/DL (8.5-10.1); CHLORIDE 106 MMOL/L (99-107); CREATININE 0.81 MG/DL (0.40-0.90); GLUCOSE 79 MG/DL (70-104); POTASSIUM 3.6 MMOL/L (3.5-5.1); SODIUM 143 MMOL/L (135-145); TOTAL CARBON DIOXIDE 28.3 MMOL/L (24-32); TOTAL PROTEIN 6.5 G/DL (6.4-8.2); eGFR 68 ML/MIN
--- NOTE | 2022-03-02 07:44 | NUR ---
Patients B/P 74/41. page sent to Dr Bronson will continue to monitor
[2022-03-02] MEDS: metoprolol succinate 25mg (24-HOUR) SR. Tablet PO SCH (08:00)
[2022-03-02] MEDS: diltiazem CD 180mg cap (once-daily) PO SCH (08:00)
[2022-03-02] MEDS: lisinopril 10 MG tablet PO SCH (08:00)
[2022-03-02] MEDS: furosemide 10 MG/1 ML 10ml inj IV SCH (08:00)
[2022-03-02] MEDS: triamcinolone acet 0.1% cream 15gm TP SCH (08:00)
[2022-03-02] MEDS: pantoprazole 40mg Tablet.DR PO SCH (08:20)
[2022-03-02] MEDS: aspirin 81mg, enteric-coated 1 TAB TABLET.DR PO SCH (08:20)
[2022-03-02] MEDS: docusate sod 100mg capsule PO SCH (08:20)
[2022-03-02] MEDS: apixaban 5mg tablet PO SCH (08:20)
[2022-03-02] MEDS: clopidogrel 75mg tablet PO SCH (08:20)
[2022-03-02] MEDS: potassium chloride 10mEq ER tablet PO SCH (08:20)
[2022-03-02] MEDS: insulin Lispro (HumaLOG) vial - multi-dose SQ SCH ×2 (09:18→13:41)
[2022-03-02 15:00] VITALS: BP 120/45
--- NOTE | 2022-03-02 17:54 | NUR ---
patient b/p 123/47. Seen by Dr bell, is for DC to [facility]. All cares given to patient . Report called to Samantha ZACARIAS [facility] . Patient Dc to [facility] via [facility] in stable condition 1600
== END 2022-03-02 16:40 | DRG 280 ==
LOC: ER 00:10 → ED HOLD 03:17 → PCU 3S 15:45
PROVIDERS: ADMIT Family Medicine; ATTEND Family Medicine
DX: I11.0 Hypertensive heart disease with heart failure (principal); I50.43 Acute on chronic combined systolic (congestive) and diastolic (congestive) heart failure; I21.A1 Myocardial infarction type 2; J96.01 Acute respiratory failure with hypoxia; L03.116 Cellulitis of left lower limb; L03.115 Cellulitis of right lower limb; I27.20 Pulmonary hypertension, unspecified; E86.1 Hypovolemia; L30.9 Dermatitis, unspecified; G30.9 Alzheimer's disease, unspecified; E11.65 Type 2 diabetes mellitus with hyperglycemia; E78.00 Pure hypercholesterolemia, unspecified; I48.91 Unspecified atrial fibrillation; R29.6 Repeated falls; F02.80 Dementia in other diseases classified elsewhere, unspecified severity, without behavioral disturbance, psychotic disturbance, mood disturbance, and anxiety; G40.909 Epilepsy, unspecified, not intractable, without status epilepticus; I25.10 Atherosclerotic heart disease of native coronary artery without angina pectoris; W18.39XA Other fall on same level, initial encounter; E78.5 Hyperlipidemia, unspecified; Z60.2 Problems related to living alone; R00.0 Tachycardia, unspecified; I25.2 Old myocardial infarction; Z79.01 Long term (current) use of anticoagulants; Z85.3 Personal history of malignant neoplasm of breast; Z88.0 Allergy status to penicillin; Z90.12 Acquired absence of left breast and nipple; Z90.710 Acquired absence of both cervix and uterus; Z91.81 History of falling; Z95.1 Presence of aortocoronary bypass graft; Z95.5 Presence of coronary angioplasty implant and graft; Z88.2 Allergy status to sulfonamides; Z91.011 Allergy to milk products; Z98.51 Tubal ligation status; Z79.899 Other long term (current) drug therapy; Z79.4 Long term (current) use of insulin; Y93.89 Activity, other specified; Y92.098 Other place in other non-institutional residence as the place of occurrence of the external cause; Y99.8 Other external cause status
CPT/HCPCS: 36415; 70551; 71045; 73502; 80053; 80061; 81003; 82948; 83036; 83735; 83880; 84100; 84484; 85025; 85379; 85610; 85730; 87081; 92508; 92616; 93005; 93306; 97110; 97116; 97162; 97530; 97535; 99285; A4314; A4615; A6250; A6449; C1758; G0378; J1815; J1940; J1956; J2270; J3490; J7030; J7120